=== PATIENT | female | born 1950 | race Asian ===

== ENCOUNTER 2025-06-05 15:54 | Emergency (ER) | payer SELFPAY ==
[2025-06-05 16:21] VITALS: BP 174/81
[2025-06-05 17:32] LABS: Hematocrit 39.5 % (37.0-47.0); Hemoglobin 12.5 g/dL (12.0-16.0); Mean Corp Hgb Conc. 31.6 g/dL (33.0-37.0); Mean Corpuscular Volume 70.3 fL (81.0-99.0); Nucleated Red Blood Cells % 0 %; Platelet Count 298 10^3/uL (130-400); Red Cell Dist. Width 15.8 % (11.5-14.5)
[2025-06-05 17:57] LABS: ALT (SGPT) 24 U/L (0-35); AST (SGOT) 23 U/L (14-36); Albumin 4.5 g/dl (3.5-5.0); Alkaline Phosphatase 77 U/L (38-126); Blood Urea Nitrogen 26 mg/dl (7-17); Calcium 9.7 mg/dl (8.4-10.2); Chloride 99 mmol/L (98-107); Glucose 132 mg/dl (70-99); Lipase 137 U/L (23-300); Potassium 3.4 mmol/L (3.5-5.1); Sodium 140 mmol/L (135-145); Total Protein 8.1 g/dl (6.3-8.2); eGFR > 60.00
[2025-06-05 18:05] LABS: Carbon Dioxide 32 mmol/L (22-30)
--- NOTE | 2025-06-05 19:27 | ED.GENMED ---
History of Present Illness
General
Chief Complaint: Abdominal Symptoms
Time Seen by Provider: 06/05/25 17:58
History of Present Illness
History of Present Illness:
75-year-old female with history of GERD, hypothyroidism, diabetes, hyperlipidemia presenting for difficulty swallowing and eating. Patient reports for the past 2 weeks she has had difficulty passing her food. She notes she has to stand up to eat.
Also notes this issue with fluids as well. She has had some episodes of vomiting as well. Notes some general discomfort to her upper abdomen. Reports of burning discomfort in her chest. Denies any known history of hiatal hernia. Denies any
difficulty breathing. Denies any history of abdominal surgeries. She had previously been on medications for GERD, however is not presently on any medications. Denies additional acute medical complaints.
Past History
Past History
ED Past Medical History: Asthma, COPD, HTN, Hypercholesterolemia, NIDDM and Hypothyroidism
ED Past Surgical History: None
Patient has exhibited threatening behavior?: No
Social History
Tobacco: Non-smoker
Alcohol: None
Drug: None
Personal:
Living: with family
Employment: Not employed
Family History
Family History: CAD and Asthma
Phy Exam
Physical Exam
Physical Exam:
General: Well-appearing, no clinical signs of dehydration, nontoxic and in no acute distress
HEENT: protecting airway
Neck: appears supple
CV: Normal heart rate, regular rhythm
Resp: No accessory muscle use, no increased work of breathing, lungs clear to auscultation bilaterally
Abd: Soft and non-distended, generalized tenderness to the upper abdomen
Extremities: No deformities, no swelling
Neuro: alert, no focal neurologic deficit
: deferred
Rectal: deferred
Psych: Normal affect
Skin: Intact
Course
Orders/Labs/Results
Orders:
Orders
06/05/25 16:26
EKG [Electrocardiogram (*1)] Urgent
Reason for Study: Chest Pain
EKG- Treatment ONCE
06/05/25 16:45
Complete Blood Count/With Diff Urgent
Comprehensive Metabolic Panel Urgent
Lipase Urgent
06/05/25 18:36
CT Abd/pelvis W Iv Cont Urgent
Comment:
Reason For Exam: difficulty eating, upper abdominal pain
Abnormal Lab Results
06/05/25
16:45
WBC 11.1 H 10^3/uL
(4.8-10.8)
RBC 5.62 H 10^6/uL
(4.20-5.40)
MCV 70.3 L fL
(81.0-99.0)
MCH 22.2 L pg
(27.0-31.0)
MCHC 31.6 L g/dL
(33.0-37.0)
RDW 15.8 H %
(11.5-14.5)
MPV 11.3 H fL
(7.4-10.4)
Abs Immat Gran (auto) 0.1 H 10^3/uL
(0-0.05)
Absolute Monos (auto) 0.9 H 10^3/uL
(0.1-0.6)
Potassium 3.4 L mmol/L
(3.5-5.1)
Carbon Dioxide 32 H mmol/L
(22-30)
BUN 26 H mg/dl
(7-17)
Glucose 132 H mg/dl
(70-99)
06/05/25 16:45
06/05/25 16:45
Vital Signs
Initial and Last Documented VS:
Initial Vital Signs
Temp Pulse Resp BP Pulse Ox
98.5 F 84 20 174/81 95
06/05/25 16:21 06/05/25 16:21 06/05/25 16:21 06/05/25 16:21 06/05/25 16:21
Last Documented Vital Signs
Temp Pulse Resp BP Pulse Ox
98.5 F 77 17 118/65 96
06/05/25 16:21 06/05/25 21:11 06/05/25 21:11 06/05/25 21:11 06/05/25 21:11
MDM/Problems Addressed
MDM/Problems Addressed:
75-year-old female with prior history of GERD presenting to the emergency department for upper abdominal discomfort and difficulty swallowing solids and liquids. Vital signs on arrival are significant for high blood pressure.
On exam, patient is resting comfortably, no acute distress. EKG obtained on patient's arrival given complaint, nonischemic. Symptoms seem to be less consistent with cardiac. Suspect more likely GI versus esophageal. Possible hiatal hernia versus
esophageal stricture. Given patient's discomfort on exam, will obtain laboratory analysis and CT imaging.
20:00 - Patient's labs are unremarkable. 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 No findings of hernia or obstruction. At this time suspect possible component of esophageal stricture versus GERD. Will start patient
on Pepcid with recommendation for close outpatient GI follow-up. Will provide information. Results discussed with patient and daughter at bedside. Patient and daughter verbalized understanding
*Pulse Oximetry
SaO2: 95
Oxygen Mode of Delivery: Room air
Patient hypoxic: no
*Critical Care Note
Total Time (30-74mins, 75-104mins- exclusive of procedures): Not Applicable
ED Attending Note
-
Portions of this chart may have been created with voice recognition software.� Occasional wrong word or��sound alike� substitutions may have occurred due to the inherent limitations of voice recognition software.
Discharge Plan
Departure
Prescriptions:
No Action
levothyroxine 75 MCG tablet
75 mcg PO DAILY
lisinopril 10 MG tablet
10 mg PO DAILY
metformin 500 MG tablet
500 mg PO DAILY
montelukast 10 MG tablet
10 mg PO HS
cetirizine 10 MG tablet
10 mg PO DAILY
Patient Comments:
Pt states she has not taken this in about 10 days
albuterol sulfate 2.5 MG/3 ML solution for nebulization
2.5 mg inhalation R Q4HPRN PRN (Reason: wheezing / shortness of breath) Qty: 25 3RF
albuterol sulfate [Proventil HFA] 90 MCG/PUFF HFA aerosol inhaler
1 puff inhalation Q4HPRN PRN (Reason: shortness of breath) Qty: 1 0RF
fluticasone propion-salmeterol [Advair Diskus] 500-50 mcg/dose Blister With Device
1 inh INHALATION BID
doxycycline hyclate 100 mg Capsule
100 mg PO Q12 Qty: 8 0RF
prednisone 10 mg tablet
10 mg PO DAILY Qty: 16 0RF
Rx Instructions:
40mg*1 day
30mg*2 day
20mg*2 day
continue with your 10mg prednisone after that
albuterol sulfate 2.5 mg /3 mL (0.083 %) solution for nebulization
2.5 mg inhalation QID Qty: 90 0RF
prednisone 20 mg tablet
40 mg PO DAILY 5 Days Qty: 10 0RF
azithromycin [Zithromax] 250 mg tablet
250 mg PO DAILY Qty: 6 0RF
Rx Instructions:
500mg PO day 1 then 250mg po qd x 4d
Referrals:
Merrill Chi MD [Family Provider, Family Practice]
Interventions
Interventions:
*Risk Screen - Suicide Last Done: 06/05/25 16:21
*General Assessment Last Done: 06/05/25 16:21
*Neglect/Abuse Screening Last Done: 06/05/25 16:21
*ED COVID-19 Vaccine History Last Done: 06/05/25 18:32
*ED Influenza Vaccine History Last Done: 06/05/25 18:32
[facility] Risk Assessment Tool Last Done: 06/05/25 20:28
[id number] Assessment Last Done: 06/05/25 18:32
Discharge Date and Time
Print Language: YAKUT
[2025-06-05 21:11] VITALS: BP 118/65
== END 2025-06-05 22:36 | disposition home or self-care (01) ==
LOC: EMR 15:54
PROVIDERS: Emergency Medicine; EMERGENCY PHYSICIAN Student in an Organized Health Care Education/Training Program; FAMILY PHYSICIAN Family Medicine
DX: K21.9 Gastro-esophageal reflux disease without esophagitis (principal); R13.10 Dysphagia, unspecified; E11.9 Type 2 diabetes mellitus without complications; E78.00 Pure hypercholesterolemia, unspecified; E03.9 Hypothyroidism, unspecified; I10 Essential (primary) hypertension; J44.89 Other specified chronic obstructive pulmonary disease; Z82.49 Family history of ischemic heart disease and other diseases of the circulatory system; Z82.5 Family history of asthma and other chronic lower respiratory diseases
CPT/HCPCS: 99284; 74177; 80053; 83690; 85025; 93005; Q9967